=== PATIENT | female | born 1990 ===

== ENCOUNTER 2020-07-25 07:44 | Outpatient (CLI) | payer BC ==
--- NOTE | 2020-07-25 10:40 | ULT ---
PELVIC ULTRASOUND: HISTORY: Spotting after intercourse. TECHNIQUE: Multiplanar, chino scale, and color Doppler images were obtained in a transabdominal and transvaginal pelvic ultrasound. Spectral analysis of the Doppler waveforms of the ovaries was performed. FINDINGS: The uterus is retroverted and normal in size. No focal uterine abnormality is seen. The endometrial stripe is normal in thickness measuring 10 mm. A trace amount of free fluid is seen adjacent to the right ovary. Both ovaries are normal in size an d appearance and demonstrate normal internal flow. IMPRESSION: No significant abnormality. POS: EAA
== END 2020-07-25 07:45 | disposition home or self-care (01) ==
LOC: BICULT 07:44
PROVIDERS: ATTEND Physician Assistant
DX: N92.3 Ovulation bleeding (principal)
CPT/HCPCS: 76856